=== PATIENT | female | born 1995 | race Caucasian/White ===

== ENCOUNTER → 2022-11-21 | Day surgery (SDC) | payer BC ==
[2022-11-14 15:24] VITALS: BMI 36.3
[~2022-11-21] MED LIST: Bupivacaine PF 0.5% 30 ML VIAL ONE; CEFAZOLIN 2 GM VIAL ONE; Ketorolac Tromethamine 30 MG/ML VIAL ONE; Meperidine HCl/PF 25 MG/ML VIAL ONE; Ondansetron PF 4 MG/2 ML Vial IVP PRN; Ondansetron PF 4 MG/2 ML Vial ONE; PROPOFOL 20 ML ONE; Promethazine HCl 25 MG/ML VIAL IM PRN; Ropivacaine 0.2% 550 ML 550 ML NERVE BLCK SCH; Zolpidem Tartrate 5 MG TAB PO PRN; fentaNYL 50 mcg/mL 1 mL Vial ONE
== END ==
LOC: CSHSDC 11:52
PROVIDERS: ATTEND Podiatrist Foot & Ankle Surgery
PROC: 0QSP04Z Reposition Left Metatarsal with Internal Fixation Device, Open Approach (ICD-10-PCS; principal; 2022-11-21)
DX: M20.12 Hallux valgus (acquired), left foot (principal); M21.622 Bunionette of left foot; M21.612 Bunion of left foot; M25.375 Other instability, left foot; M67.472 Ganglion, left ankle and foot; Z79.899 Other long term (current) drug therapy; Z90.49 Acquired absence of other specified parts of digestive tract
CPT/HCPCS: A4306; C1713; C1769; C1776; J1885; J2175; J2405; J2704; J2795; J3010; S0020